=== PATIENT | female | born 1960 | race Caucasian/White ===

== ENCOUNTER → 2017-03-13 | Outpatient (CLI) | payer OTHER ==
[~2017-03-13] MED LIST: ALBU6.7H INH; ARMO1TAB PO; CALCTAB80 PO; CELE200C PO; CETI-1 PO; CLIN1PAD2 TOPICAL; CODE30TA2 PO; DICL1KIT5 TOPICAL; ESTR1TAB PO; LANS15CA PO; LYRI150C PO; MILK175C7 PO; OMEG1CAP50 PO; ONETAB22 PO; RANI1TAB5 PO; SULF500T3 PO; VARE1 PO; [UNRECOGNIZED DRUG - CODE] PO
[2017-03-13 10:14] LABS: AUTOMATED NEUTROPHIL # 3.8 TH/MM3 (1.8-7.7); BASOPHIL % 0.1 % (0.0-2.0); EOSINOPHIL # 0.1 TH/MM3 (0-0.4); EOSINOPHIL % 1.9 % (0.0-4.0); HEMATOCRIT 33.2 % (35.0-46.0); HEMOGLOBIN 11.6 GM/DL (11.6-15.3); LYMPH % 26.6 % (9.0-44.0); LYMPHOCYTE # 1.6 TH/MM3 (1.0-4.8); MEAN CELL VOLUME 98.8 FL (80.0-100.0); MEAN CORPUSCULAR HEMOGLOBIN 34.6 PG (27.0-34.0); MEAN PLATELET VOLUME 8.2 FL (7.0-11.0); MONO % 7.8 % (0.0-8.0); MONOCYTE # 0.5 TH/MM3 (0-0.9); NEUT % 63.6 % (16.0-70.0); PLATELET COUNT 175 TH/MM3 (150-450); RED BLOOD COUNT 3.36 MIL/MM3 (4.00-5.30); RED CELL DISTRIBUTION WIDTH 11.8 % (11.6-17.2)
[2017-03-13 10:19] LABS: PROTHROMBIN TIME - PATIENT 10.6 SEC (9.8-11.6)
[2017-03-13 10:23] LABS: BACTERIA, URINE RARE /hpf; BILIRUBIN, URINE NEG (NEG); BLOOD, URINE NEG (NEG); GLUCOSE,URINE NEG (NEG); KETONE, URINE NEG (NEG); MUCUS URINE FEW /lpf (OCC); NITRITE,URINE NEG (NEG); PH, URINE 6.5 (5.0-8.5); SQUAMOUS EPITHELIAL CELL URINE 15 /hpf (0-5); URINE COLOR YELLOW (YELLW/STRAW); URINE LEUKOCYTE ESTERASE NEG (NEG)
[2017-03-13 10:43] LABS: ALBUMIN 3.8 GM/DL (3.4-5.0); AST (GOT) 21 U/L (15-37); BICARBONATE 28.4 MEQ/L (21.0-32.0); BLOOD UREA NITROGEN 8 MG/DL (7-18); CALCIUM 8.6 MG/DL (8.5-10.1); CHLORIDE 98 MEQ/L (98-107); CREATININE 0.61 MG/DL (0.50-1.00); GLOMERULAR FILTRATION RATE 102 ML/MIN (>89); GLUCOSE,FASTING 70 MG/DL (74-99); SODIUM (NA) 134 MEQ/L (136-145); WESTERGREN SEDIMENTATION RATE 5 mm/hr (0-30)
[2017-03-13 10:44] LABS: ALT (GPT) 21 U/L (10-53)
[2017-03-13 10:46] LABS: ALKALINE PHOSPHATASE 61 U/L (45-117); TOTAL BILIRUBIN ADULT 0.4 MG/DL (0.2-1.0); TOTAL PROTEIN 6.5 GM/DL (6.4-8.2)
--- NOTE | 2017-03-13 11:45 | RADRPT ---
EXAM DATE/TIME: 03/13/2017 11:23 [facility] COMPARISON: No previous studies available for comparison. INDICATIONS : Evaluate for pneumonia, pneumothorax, and communicable diseases. Pre-op knee surgery MEDICAL HISTORY : None. SURGICAL HISTORY : None. ENCOUNTER: Initial ACUITY: 1 day PAIN SCORE: 0/10 LOCATION: chest FINDINGS: PA and lateral views of the chest demonstrate the lungs to be symmetrically aerated without evidence of mass, infiltrate or effusion. The cardiomediastinal contours are unremarkable. Fixation hardware partially imaged in the lower cervical spine. Degenerative changes in the upper lumbar spine. Osseous structures are otherwise intact. CONCLUSION: 1. No acute cardiopulmonary disease. Scooter Causey MD on March 13, 2017 at 11:42 Board Certified Radiologist. This report was verified electronically.
--- NOTE | 2017-03-13 14:04 | EKG ---
Date Performed: 03/13/2017 Time Performed: 09:50:40 PTAGE: 56 years EKG: Sinus bradycardia with sinus arrhythmia Lead(s) unsuitable for analysis: V1 Poor R wave pro gression - probable normal variant Low QRS voltages in limb leads Borderline ECG NO PREVIOUS TRACING DOCTOR: Gato Sterling Interpretating Date/Time 03/13/2017 14:03:26
== END ==
LOC: CPRE 08:59
PROVIDERS: ATTEND Orthopaedic Surgery Sports Medicine
DX: Z01.810 Encounter for preprocedural cardiovascular examination (principal); Z01.811 Encounter for preprocedural respiratory examination; Z01.812 Encounter for preprocedural laboratory examination; M17.11 Unilateral primary osteoarthritis, right knee; R00.1 Bradycardia, unspecified
CPT/HCPCS: 36415; 71020; 80053; 81001; 85025; 85610; 85652; 85730; 93005

== ENCOUNTER → 2017-04-28 | Outpatient (CLI) | payer OTHER ==
[~2017-04-28] MED LIST changes: +ASPI81CH6 CHEW; +CPMMACHINE; +FLUT1SPR5 EACH NARE; +HYDR-3288 PO; +LANS30CA PO; +MAPA500T13 PO; +WALKER WHEELS/F1 MIS
[2017-04-28 11:43] LABS: BASOPHIL % 0.1 % (0.0-2.0); EOSINOPHIL # 0.1 TH/MM3 (0-0.4); EOSINOPHIL % 0.7 % (0.0-4.0); HEMATOCRIT 36.6 % (35.0-46.0); HEMOGLOBIN 12.7 GM/DL (11.6-15.3); LYMPH % 24.4 % (9.0-44.0); LYMPHOCYTE # 1.8 TH/MM3 (1.0-4.8); MEAN CELL VOLUME 96.2 FL (80.0-100.0); MEAN CORPUSCULAR HEMOGLOBIN 33.5 PG (27.0-34.0); MEAN CORPUSCULAR HGB CONC 34.8 % (32.0-36.0); MEAN PLATELET VOLUME 7.6 FL (7.0-11.0); MONO % 6.3 % (0.0-8.0); MONOCYTE # 0.5 TH/MM3 (0-0.9); NEUT % 68.5 % (16.0-70.0); PLATELET COUNT 217 TH/MM3 (150-450); RED BLOOD COUNT 3.81 MIL/MM3 (4.00-5.30); RED CELL DISTRIBUTION WIDTH 11.8 % (11.6-17.2); WHITE BLOOD COUNT 7.3 TH/MM3 (4.0-11.0)
[2017-04-28 11:53] LABS: PROTHROMBIN TIME - PATIENT 10.5 SEC (9.8-11.6)
[2017-04-28 11:53] LABS: BILIRUBIN, URINE NEG (NEG); BLOOD, URINE NEG (NEG); GLUCOSE,URINE NEG (NEG); KETONE, URINE NEG (NEG); NITRITE,URINE NEG (NEG); PH, URINE 6.5 (5.0-8.5); SQUAMOUS EPITHELIAL CELL URINE 3 /hpf (0-5); URINE COLOR YELLOW (YELLW/STRAW); URINE LEUKOCYTE ESTERASE NEG (NEG)
[2017-04-28 12:26] LABS: ALBUMIN 4.2 GM/DL (3.4-5.0); AST (GOT) 17 U/L (15-37); BICARBONATE 30.4 MEQ/L (21.0-32.0); BLOOD UREA NITROGEN 11 MG/DL (7-18); CALCIUM 9.3 MG/DL (8.5-10.1); CHLORIDE 98 MEQ/L (98-107); CREATININE 0.82 MG/DL (0.50-1.00); GLOMERULAR FILTRATION RATE 72 ML/MIN (>89); GLUCOSE,FASTING 106 MG/DL (74-99); SODIUM (NA) 135 MEQ/L (136-145)
[2017-04-28 12:30] LABS: ALKALINE PHOSPHATASE 70 U/L (45-117); ALT (GPT) 36 U/L (10-53); TOTAL BILIRUBIN ADULT 0.6 MG/DL (0.2-1.0); TOTAL PROTEIN 7.2 GM/DL (6.4-8.2)
[2017-04-28 13:39] LABS: WESTERGREN SEDIMENTATION RATE 5 mm/hr (0-30)
--- NOTE | 2017-04-29 22:20 | EKG ---
Date Performed: 04/28/2017 Time Performed: 11:38:42 PTAGE: 56 years EKG: Sinus rhythm LOW QRS VOLTAGE IN EXTREMITY LEADS BORDERLINE ECG PREVIOUS TRACING : 03/13/2017 09.50 Since the prior tracing, there has been no significant swanson DOCTOR: Skinny Joyner Interpretating Date/Time 04/29/2017 22:17:25
== END ==
LOC: CPRE 11:05
PROVIDERS: ATTEND Orthopaedic Surgery Sports Medicine
DX: Z01.812 Encounter for preprocedural laboratory examination (principal); Z01.810 Encounter for preprocedural cardiovascular examination; M25.50 Pain in unspecified joint; M17.11 Unilateral primary osteoarthritis, right knee; R94.31 Abnormal electrocardiogram [ECG] [EKG]; Z96.60 Presence of unspecified orthopedic joint implant; Z01.818 Encounter for other preprocedural examination; Z79.01 Long term (current) use of anticoagulants
CPT/HCPCS: 36415; 80053; 81001; 85025; 85610; 85652; 85730; 93005

== ENCOUNTER 2017-05-15 05:16 | Inpatient (IN) | payer OTHER ==
[~2017-05-15] VITALS: Ht 165.1 cm; Wt 59.4 kg
[~2017-05-15 05:16] MED LIST changes: -ASPI81CH6 CHEW; -CPMMACHINE; -HYDR-3288 PO; -LANS15CA PO; -WALKER WHEELS/F1 MIS
[2017-05-15] MEDS ORDERED: CHLORHEXIDINE GLUCONATE 4% SOLN 120 ML BTL TOPICAL SCH (05:45)
[2017-05-15] MEDS ORDERED: DEXAMETHASONE SOD PHOS 20 MG/5 ML VIAL IV SCH (05:45)
[2017-05-15] MEDS ORDERED: VANCOMYCIN 1000 MG/NS 250 ML (for <70 kg) IV SCH ×2 (05:45)
[2017-05-15] MEDS ORDERED: POVIDONE IODINE 7.5% SCRUB 118 ML BOTTLE TOPICAL SCH (05:45)
[2017-05-15] MEDS ORDERED: CHLORHEXIDINE GLUCONATE 2 % 1 PACK (2 CLOTHS) TOPICAL PRN (06:00)
[2017-05-15] MEDS ORDERED: CLINDAMYCIN 900 MG/NS 100 ML IV SCH ×2 (06:00)
[2017-05-15] MEDS ORDERED: POVIDONE IODINE 5% (ANTISEPSIS KIT) 4 APPLICATIONS EACH NARE PRN (06:00)
[2017-05-15] MEDS ORDERED: METOPROLOL TARTRATE 25 MG TAB PO PRN (06:00)
[2017-05-15] MEDS ORDERED: SODIUM CHLORID 0.9% 500 ML IV PRN (06:00)
[2017-05-15] MEDS ORDERED: LACTATED RINGER'S 1000 ML IV PRN (06:00)
[2017-05-15] MEDS ORDERED: SODIUM CHLOR 0.9% 250 ML INJ 250 ML ONE (06:49)
[2017-05-15 07:05] VITALS: PULSE 58
[2017-05-15] MEDS ORDERED: SODIUM CHLORIDE 0.9% 20 ML VIAL ONE (07:09)
[2017-05-15] MEDS ORDERED: BUPIVACAINE LIPOSOME PF 1.3% 20 ML VIAL ONE (07:09)
[2017-05-15] MEDS ORDERED: MIDAZOLAM HCL 5 MG/5 ML VIAL ONE (07:09)
[2017-05-15] MEDS ORDERED: HYDR-3288 PO (07:12)
[2017-05-15] MEDS ORDERED: ASPI81CH6 CHEW (07:13)
[2017-05-15] MEDS ORDERED: ONDANSETRON HCL 4 MG/2 ML VIAL IVP PRN (07:15)
[2017-05-15] MEDS ORDERED: ZOLPIDEM TARTRATE 5 MG TAB PO PRN (07:15)
[2017-05-15] MEDS ORDERED: diphenhydrAMINE HCL 50 MG/ML VIAL IV PUSH PRN (07:15)
[2017-05-15] MEDS ORDERED: Post-op Orders (for Pharmacy) XX ONE (07:15)
[2017-05-15] MEDS ORDERED: BISACODYL 10 MG SUPP RECTAL PRN (07:15)
[2017-05-15] MEDS ORDERED: MORPHINE SULFATE 4 MG/ML INJ IV PUSH PRN (07:15)
[2017-05-15] MEDS ORDERED: GENTAMICIN SULFATE 80 MG/2 ML VIAL ONE (07:21)
[2017-05-15] MEDS ORDERED: TRANEXAMIC PERI-ARTICULAR 3,000 MG/NS 100 ML P-ARTICULR SCH ×2 (08:30)
[2017-05-15] MEDS ORDERED: TRANEXAMIC ACID IV SCH (08:30)
[2017-05-15] MEDS ORDERED: ROPIVACAINE PERI-ARTICULAR INJECTION. P-ARTICULR SCH ×5 (08:30)
[2017-05-15] MEDS ORDERED: SODIUM CHLORIDE 0.9% IV SCH (08:30)
[2017-05-15] MEDS ORDERED: ACETAMINOPHEN 1000 MG/100 ML 100 ML IV ONE (08:39)
[2017-05-15] MEDS: VARENICLINE 1 MG TAB PO SCH ×2 (09:00→17:25)
[2017-05-15] MEDS: PREGABALIN 75 MG CAP PO SCH ×2 (09:00→21:00)
[2017-05-15] MEDS: PANTOPRAZOLE SOD 40 MG DELAYED RELEASE TAB PO SCH (09:00)
[2017-05-15] MEDS: FAMOTIDINE 20 MG TAB PO SCH ×2 (09:00→20:14)
[2017-05-15] MEDS: sulfaSALAzine 500 MG TAB PO SCH ×3 (09:00→21:00)
[2017-05-15] MEDS: CETIRIZINE HCL 10 MG TAB PO SCH (09:00)
[2017-05-15] MEDS: ESTRADIOL 1 MG TAB PO SCH (09:00)
[2017-05-15] MEDS: CALCIUM/VITAMIN D 250 MG/125 U TAB PO SCH (10:00)
[2017-05-15] MEDS ORDERED: DO NOT ADM ANY ANTICOAGULANT DRUGS PRN (10:21)
[2017-05-15] MEDS ORDERED: *morphine SULFATE 10 MG/ML PERIprocedure ONLY ONE (10:38)
[2017-05-15] MEDS ORDERED: MORPHINE SULFATE 4 MG/ML INJ ONE (10:43)
[2017-05-15] MEDS: SODIUM CHLOR 0.9% 1000 ML INJ 1,000 ML IV SCH ×2 (10:45→17:26)
[2017-05-15] MEDS ORDERED: HYDROmorphone HCL PF 2 MG/ML VIAL ONE (11:01)
--- NOTE | 2017-05-15 11:30 | RADRPT ---
EXAM DATE/TIME: 05/15/2017 10:34 [facility] COMPARISON: No previous studies available for comparison. INDICATIONS : Post-op total right knee arthroplasty. MEDICAL HISTORY : Chronic obstructive pulmonary disease. Osteoarthritis. Fibromyalgia. Asthma. SURGICAL HISTORY : Hysterectomy. Fusion, cervical. Bilateral rotator cuff surgery. ENCOUNTER: Initial ACUITY: 1 day PAIN SCORE: 10/10 LOCATION: Right knee. FINDINGS: The patient is status post right total knee arthroplasty. The tibial and femoral components appear we ll seated. Subcutaneous emphysema is identified within the soft tissues of the level of the knee. CONCLUSION: Status post right total knee arthroplasty. Brian Borges MD on May 15, 2017 at 11:28 Board Certified Radiologist. This report was verified electronically.
[2017-05-15] MEDS ORDERED: ONDANSETRON HCL 4 MG/2 ML VIAL IV PUSH ONE (12:00)
[2017-05-15] MEDS ORDERED: GLYCOPYRROLATE 1 MG/5 ML SYRINGE IV PUSH ONE (12:00)
[2017-05-15] MEDS ORDERED: ROCURONIUM INJ 50 MG/5 ML SYRINGE IV PUSH ONE (12:00)
[2017-05-15] MEDS ORDERED: NEOSTIGMINE 5 MG/5 ML SYRINGE IV PUSH ONE (12:00)
[2017-05-15] MEDS ORDERED: LIDOCAINE HCL 1% PF 5 ML SYRINGE OTHER ONE (12:00)
[2017-05-15] MEDS ORDERED: ePHEDrine/NS 25 MG/5 ML SYRINGE IV ONE (12:00)
[2017-05-15] MEDS ORDERED: PROPOFOL 200 MG/20 ML AMP IV ONE (12:00)
[2017-05-15] MEDS ORDERED: *ONDANSETRON 4 MG VIAL PERIprocedural Use ONLY ONE (13:31)
--- NOTE | 2017-05-15 13:39 | MP ---
cc: Bill Giraldo MD DATE OF OPERATION: PREOPERATIVE DIAGNOSIS: Right knee osteoarthrosis. POSTOPERATIVE DIAGNOSIS: Right knee osteoarthrosis. PROCEDURE: Right total knee arthroplasty. SURGEON: Bill Giraldo MD PROJECTION TECHNICIAN: JOSE Looney ANESTHESIA: General with a femoral nerve adductor canal block. ESTIMATED BLOOD LOSS: 200 mL. TOURNIQUET TIME: 26 minutes at 250 mmHg. COMPLICATIONS: None. IMPLANTS USED: DePuy Attune size 5 posterior stabilized femoral component, size 5 rotating platform tibia baseplate, size 6 mm polyethylene tibial insert, size 35 patella. JUSTIFICATION: This patient is a 56-year-old female with history of severe end-stage osteoarthrosis involving the right knee. She has severe disabling pain with standing, walking, ambulation, weightbearing activities and severe pain at rest. She has failed greater than 3 months of nonoperative conservative treatment to include medication therapy, injections, ambulatory assistance aids, home exercise program, activity modification. Patient is not overweight. X-rays of the right knee reveal severe degenerative osteoarthritis with joint space narrowing, subchondral sclerosis, subchondral cyst, osteophyte formation and associated subluxation with deformity. The patient was counseled on risks, benefits, alternatives to a total knee arthroplasty. The risks were discussed, which include but not limited to anesthesia, bleeding, infection, damage to nerves, blood loss, pain, stiffness, failure of components, blood clots, pulmonary embolism and even . Patient's pain is severe. She favors the benefits versus the risks and she does wish to proceed with surgery. PROCEDURE IN DETAIL: Written consent was obtained. Patient was identified by name, taken by operating room, placed supine on the table. General anesthesia was administered, as well as 1 g of IV vancomycin and 600 mg of IV clindamycin. A well-padded tourniquet was placed on the right thigh. The right lower extremity prepped and draped using Hibiclens solution and ChloraPrep solution. After a timeout was performed, an Esmarch bandage was used to exsanguinate the right lower extremity. Tourniquet inflated to 250 mmHg. A longitudinal incision was made over the anterior aspect of the right knee. A medial parapatellar arthrotomy was performed. The patella was everted, and patellar resection guide was used to resect 7 mm of patella. The size 35 mm guide was placed. Three drill holes were placed and the 35 mm trial fit well. Attention was turned to the femur where an intramedullary guidewire was placed, and the distal femoral guide was set to remove 11 mm of distal femur, 5 degrees off the anatomic valgus axis alignment. An oscillating saw was used to perform the distal femoral cut. Attention was turned to the tibia where an extramedullary tibial guide was set to remove 5 mm off the lowest portion of the medial tibial plateau. The tibial guide was pinned in placed, and tibia cut was performed. A 5 mm spacer block showed full extension. Attention was turned back to the femur, where the AP sizing block measured size 5. The anterior reference 3-degree external rotation guide was used to pin a size [address] The anterior, posterior and chamfer cuts were performed. A size 5 PCL box guide was pinned in place and the PCL was box cut with an oscillating saw. The medial and lateral meniscus remnants were removed, as well as bone and soft tissue debris from the posterior portion of the knee. A size 5 tibia base plate was pinned in place, and tibia was drilled and punched. Trial components were evaluated and final components cemented into place. With the current components, the leg could achieve full extension to zero degrees and flexion to 140. No evidence of tibial lift off. Varus-valgus balance appeared appropriate and symmetric, and the patella was noted to track centrally. With the tourniquet deflated, Bovie cautery was used for hemostasis. Surgical wound was thoroughly irrigated with sterile saline solution. The arthrotomy incision was closed with #1 Vicryl suture, subcutaneous layer with 2-0 Vicryl suture, and skin was closed with Dermabond. Sterile dressing was applied. Patient tolerated procedure well. No intraoperative complications note. Gulshan Oneal, physician captain assistant certified, was present during entire procedure to include patient positioning and the procedure itself. The medical necessity of a physician captain assistant was indicated in this case due to the complexity of the procedure. He assisted with appropriate manipulation of the leg and also retraction of muscles, tendon, bone and neurovascular structures. He assisted with preparation of bone and also implantation of the prosthetic replacement. MD EJ Dan/ASAEL , 10:04 AM , 01:37 PM
[2017-05-15 14:30] VITALS: BP 96/52; PULSE 56; RESP 17; TEMP 96.1; O2SAT 96
--- NOTE | 2017-05-15 14:34 | HHI.DCPOC ---
Discharge Care Plan Diagnosis: (1) Primary localized osteoarthrosis, lower leg Your Health Problems Are: Difficulty with ADL Goals to Promote Your Health * To prevent worsening of your condition and complications * To maintain your health at the optimal level Directions to Meet Your Goals Take your medications as prescribed Follow your dietary instruction Follow activity as directed Keep your appointments as scheduled Take your immunizations and boosters as scheduled If your symptoms worsen call your PCP, if no PCP go to Urgent Care Center or Emergency Room Smoking is Dangerous to Your Health. Avoid second hand smoke Call the 24-hour hour crisis hotline for domestic abuse at Bill Oneal May 15, 2017 14:34
--- NOTE | 2017-05-15 14:34 | HHI.FF ---
Face to Face Verification Diagnosis: (1) Primary localized osteoarthrosis, lower leg Physical Therapy Gait training, Safety evaluation, Transfer training, bed to chair Knee: Total knee, Protocol: Right, Full weight bearing Right LE Weight Bearing: WB as tolerated Nursing RN: 3 days/week x 2 weeks Nursing: Dressing changes Dressing Changes: Daily dressing change I have seen patient Gracia Cantu on 05/15/17. My clinical findings support the need for the requested home health care services because: Limited ability to care for self High risk of falls I certify that my clinical findings support that this patient is homebound because: Post-op weakness Unsteady gait/balance Bill Oneal May 15, 2017 14:34
--- NOTE | 2017-05-15 14:36 | PD.ORT.PN ---
Subjective Post Op Day #: 0 Objective Vitals Vital Signs Date Time Temp Pulse Resp B/P (MAP) Pulse Ox O2 Delivery O2 Flow Rate FiO2 05/15/17 13:30 65 20 92/56 (68) 100 Nasal Cannula 3 05/15/17 13:00 53 12 99/56 (70) 100 Nasal Cannula 3 05/15/17 12:30 97.2 50 12 93/55 (68) 100 Nasal Cannula 3 05/15/17 12:00 49 12 90/53 (65) 100 Nasal Cannula 3 05/15/17 11:30 51 12 97/52 (67) 98 Nasal Cannula 3 05/15/17 11:15 55 12 97/56 (70) 99 Nasal Cannula 3 05/15/17 11:00 61 18 94/63 (73) 100 Nasal Cannula 3 05/15/17 10:45 59 20 109/62 (78) 100 Nasal Cannula 3 05/15/17 10:24 98.2 67 18 119/66 (83) 100 Nasal Cannula 3 05/15/17 08:02 56 20 106/60 (75) 99 05/15/17 07:05 100 Nasal Cannula 05/15/17 07:05 58 05/15/17 06:50 97.6 57 16 117/69 (85) 95 I/O 05/14/17 05/14/17 05/14/17 05/15/17 05/15/17 05/15/17 07:00 15:00 23:00 07:00 15:00 23:00 Intake Total 1500 ml Output Total 1250 ml Balance 250 ml Other 1500 ml Output Urine Total 1050 ml Estimated Blood Loss 200 ml Imaging Last 24 hours Impressions Knee X-Ray 05/15/17 0710 Signed Impressions: Service Date/Time: Monday, May 15, 2017 10:34 - CONCLUSION: Status post right total knee arthroplasty. Brian Borges MD Assessment & Plan Ortho Post Op Day #: 0 Problem List: Assessment and Plan s/p R TKA POD#0 wbat ok to maintain dressing unless saturated lovenox, d/c on asa81 d/c planning home vs snf rx in chart f/up dr. beckett 2 weeks Bill Oneal May 15, 2017 14:36
[2017-05-15] MEDS ORDERED: WALKER WHEELS/F1 MIS (14:38)
[2017-05-15] MEDS ORDERED: CPMMACHINE (14:38)
[2017-05-15] MEDS: ACETAMINOPHEN/HYDROcodone 325 MG/7.5 MG TAB PO PRN ×2 (15:17→21:36)
[2017-05-15] MEDS ORDERED: ALBUTEROL SULFATE 90 MCG/ACT HFA 8 GM INHALER INH PRN (16:00)
--- NOTE | 2017-05-15 16:07 | PD.CONS ---
HPI Service [facility] Consult Requested By Reason for Consult Medical management Primary Care Physician Nata Arias D.O. Diagnoses: History of Present Illness 56-year-old female who underwent a right total knee arthroplasty today. She tolerated the procedure well and is currently still sleepy due to sedation. She is holding a nausea bag and complains of some recurrent nausea following her last Zofran dose 4 hours ago. Her pain is adequately controlled. Review of Systems Constitutional: DENIES: Fatigue, Fever, Weight gain, Weight loss, Chills Eyes: DENIES: Blurred vision, Eye pain, Vision loss, Photosensitivity Respiratory: DENIES: Cough, Wheezing, Hemoptysis, Sputum production Gastrointestinal: COMPLAINS OF: Nausea, DENIES: Black stools, Bloody stools, Constipation, Diarrhea, Vomiting Genitourinary: DENIES: Abnormal vaginal bleeding, Dysmenorrhea Musculoskeletal: COMPLAINS OF: Joint pain, Stiffness, Joint Swelling, DENIES: Muscle aches, Back pain, Neck pain Integumentary: DENIES: Abnormal pigmentation, Pruritus, Rash Neurologic: DENIES: Abnormal gait, Headache, Localized weakness, Paresthesias, Seizures, Speech Problems, Tremor Psychiatric: DENIES: Anxiety, Confusion, Mood changes, Depression Past Family Social History Allergies: Coded Allergies: Penicillins (Verified Allergy, Severe, CRAWFORD OF BLOOD RUNNING DOWN THE BACK OF MY THROAT, 03/13/17) bupropion (Verified Allergy, Unknown, PANIC ATTACKS, 03/13/17) Past Medical History Patient denies any major medical issues Though her medication list seems to point to GI issues Past Surgical History Hysterectomy, C5, C6, C7 fusion, bilateral rotator cuff surgery Family History Hypertension, type 1 diabetes Social History Prior smoker, occasional alcohol use (social) Physical Exam Vital Signs Vital Signs Date Time Temp Pulse Resp B/P (MAP) Pulse Ox O2 Delivery O2 Flow Rate FiO2 05/15/17 14:30 96.1 56 17 96/52 (67) 96 05/15/17 13:30 65 20 92/56 (68) 100 Nasal Cannula 3 05/15/17 13:00 53 12 99/56 (70) 100 Nasal Cannula 3 05/15/17 12:30 97.2 50 12 93/55 (68) 100 Nasal Cannula 3 05/15/17 12:00 49 12 90/53 (65) 100 Nasal Cannula 3 05/15/17 11:30 51 12 97/52 (67) 98 Nasal Cannula 3 05/15/17 11:15 55 12 97/56 (70) 99 Nasal Cannula 3 05/15/17 11:00 61 18 94/63 (73) 100 Nasal Cannula 3 05/15/17 10:45 59 20 109/62 (78) 100 Nasal Cannula 3 05/15/17 10:24 98.2 67 18 119/66 (83) 100 Nasal Cannula 3 05/15/17 08:02 56 20 106/60 (75) 99 05/15/17 07:05 100 Nasal Cannula 05/15/17 07:05 58 05/15/17 06:50 97.6 57 16 117/69 (85) 95 Physical Exam GENERAL: This is a well-nourished, well-developed patient, in no apparent distress, still slightly sedated from anesthesia SKIN: No rashes, ecchymoses or lesions. Cool and dry. HEAD: Atraumatic. Normocephalic. No temporal or scalp tenderness. EYES: Pupils equal round and reactive. Extraocular motions intact. No scleral icterus. No injection or drainage. ENT: Nose without bleeding, purulent drainage or septal hematoma. Throat without erythema, tonsillar hypertrophy or exudate. Uvula midline. Airway patent. NECK: Trachea midline. No JVD or lymphadenopathy. Supple, nontender, no meningeal signs. CARDIOVASCULAR: Regular rate and rhythm without murmurs, gallops, or rubs. RESPIRATORY: Clear to auscultation. Breath sounds equal bilaterally. No wheezes , rales, or rhonchi. GASTROINTESTINAL: Abdomen soft, non-tender, nondistended. No palpable masses, no guarding, hypoactive bowel sounds MUSCULOSKELETAL: Extremities without clubbing, cyanosis, or edema. Right knee under surgical wrap with Alberto bandage in place. Sensation and circulation in her right foot intact. NEUROLOGICAL: Awake and alert. Cranial nerves II through XII intact. Motor and sensory grossly within normal limits. Five out of 5 muscle strength in all muscle groups. Normal speech. Assessment and Plan Problem List: (1) Primary localized osteoarthrosis, lower leg ICD Code: M17.10 - Unilateral primary osteoarthritis, unspecified knee Assessment and Plan Total arthroplasty right knee Tolerated procedure well, slight nausea PT planned for tomorrow Orthopedics following Nausea Zofran every 4 hours as needed Patient states she tolerates hydrocodone better than morphine Bowel sounds hypoactive, still awakening following surgery Clear liquids for now History of cervical fusion No complaints of pain in this region at this time History of hysterectomy Patient takes 1 mg of estradiol Resume when ambulatory DVT prophylaxis Lovenox while inpatient, aspirin upon discharge (or the recommendations) Discharge planning Patient states she walked from her stretcher into the bed, POD #0, expect timely discharge. Problem Qualifiers (1) Primary localized osteoarthrosis, lower leg: Qualified Codes: M17.11 - Unilateral primary osteoarthritis, right knee Dillon Fatima MD May 15, 2017 16:06
[2017-05-15] MEDS ORDERED: ONDANSETRON HCL 4 MG/2 ML VIAL IV PUSH PRN (16:15)
[2017-05-15] MEDS: VANCOMYCIN INJ 1,000 MG in SODIUM CHLOR 0.9% 250 ML INJ 250 ML IV SCH (20:14)
[2017-05-15 20:30] VITALS: BP 90/54; PULSE 56; RESP 17; TEMP 97; O2SAT 99
[2017-05-15] MEDS ORDERED: SODIUM CHLORID 0.9% 500 ML INJ 500 ML IV ONE (23:45)
[2017-05-16] VITALS: BP 94/49; PULSE 59; RESP 17; TEMP 97.4; O2SAT 97
[2017-05-16 00:10] LABS: HEMATOCRIT 28.3 % (35.0-46.0); HEMOGLOBIN 9.9 GM/DL (11.6-15.3)
[2017-05-16] MEDS: sulfaSALAzine 500 MG TAB PO SCH ×4 (03:00→20:57)
[2017-05-16] MEDS: SODIUM CHLOR 0.9% 1000 ML INJ 1,000 ML IV SCH ×2 (04:00→14:00)
[2017-05-16 04:25] VITALS: BP 87/41; PULSE 65; RESP 17; TEMP 97.8; O2SAT 96
[2017-05-16 04:43] LABS: HEMATOCRIT 26.2 % (35.0-46.0); HEMOGLOBIN 9.2 GM/DL (11.6-15.3); MEAN CELL VOLUME 96.3 FL (80.0-100.0); MEAN CORPUSCULAR HEMOGLOBIN 33.9 PG (27.0-34.0); MEAN CORPUSCULAR HGB CONC 35.2 % (32.0-36.0); MEAN PLATELET VOLUME 7.5 FL (7.0-11.0); PLATELET COUNT 145 TH/MM3 (150-450); RED BLOOD COUNT 2.73 MIL/MM3 (4.00-5.30); RED CELL DISTRIBUTION WIDTH 11.6 % (11.6-17.2); WHITE BLOOD COUNT 7.5 TH/MM3 (4.0-11.0)
[2017-05-16 05:11] LABS: BICARBONATE 27.8 MEQ/L (21.0-32.0); CALCIUM 8.4 MG/DL (8.5-10.1); CREATININE 0.63 MG/DL (0.50-1.00)
[2017-05-16] MEDS: VANCOMYCIN INJ 1,000 MG in SODIUM CHLOR 0.9% 250 ML INJ 250 ML IV SCH (07:59)
[2017-05-16] MEDS: CALCIUM/VITAMIN D 250 MG/125 U TAB PO SCH (07:59)
[2017-05-16] MEDS: PREGABALIN 75 MG CAP PO SCH ×2 (07:59→20:57)
[2017-05-16 08:00] VITALS: BP 101/51; PULSE 64; RESP 18; TEMP 97.6; O2SAT 97
[2017-05-16] MEDS: VARENICLINE 1 MG TAB PO SCH ×2 (08:00→18:00)
[2017-05-16] MEDS: ACETAMINOPHEN/HYDROcodone 325 MG/7.5 MG TAB PO PRN ×4 (08:00→20:57)
[2017-05-16] MEDS: ESTRADIOL 1 MG TAB PO SCH (08:01)
[2017-05-16] MEDS: CETIRIZINE HCL 10 MG TAB PO SCH (08:03)
[2017-05-16] MEDS: PANTOPRAZOLE SOD 40 MG DELAYED RELEASE TAB PO SCH (08:03)
[2017-05-16] MEDS: FAMOTIDINE 20 MG TAB PO SCH ×2 (08:03→20:57)
--- NOTE | 2017-05-16 08:26 | HHI.PR ---
Subjective Remarks Pt seen and examined this morning. Overnight patient was hypotensive with documented BP as low as 87/41 requiring a fluid bolus. Patient reports she never felt symptomatic; denies dizziness, lightheadedness, or weakness. Has been sitting up in bed and getting up to use the restroom with no issues or feeling lightheaded. States her BP typically runs on the lower end and systolic has been in the 90s as an outpatient. She also notes being anemic since she was a teenager. Denies any active bleeding. Colonoscopy done within the year. Has a PCP who follows her CBC. She is tolerating PO without nausea or vomiting. Passing flatus, no BM yet. Denies CP, SOB, or abdominal pain. Objective Vital Signs Date Time Temp Pulse Resp B/P (MAP) Pulse Ox O2 Delivery O2 Flow Rate FiO2 05/16/17 04:25 97.8 65 17 87/41 (56) 96 05/16/17 00:00 97.4 59 17 94/49 (64) 97 05/15/17 20:30 97.0 56 17 90/54 (66) 99 05/15/17 14:30 96.1 56 17 96/52 (67) 96 05/15/17 13:30 65 20 92/56 (68) 100 Nasal Cannula 3 05/15/17 13:00 53 12 99/56 (70) 100 Nasal Cannula 3 05/15/17 12:30 97.2 50 12 93/55 (68) 100 Nasal Cannula 3 05/15/17 12:00 49 12 90/53 (65) 100 Nasal Cannula 3 05/15/17 11:30 51 12 97/52 (67) 98 Nasal Cannula 3 05/15/17 11:15 55 12 97/56 (70) 99 Nasal Cannula 3 05/15/17 11:00 61 18 94/63 (73) 100 Nasal Cannula 3 05/15/17 10:45 59 20 109/62 (78) 100 Nasal Cannula 3 05/15/17 10:24 98.2 67 18 119/66 (83) 100 Nasal Cannula 3 I/O 05/15/17 05/15/17 05/15/17 05/16/17 05/16/17 05/16/17 07:00 15:00 23:00 07:00 15:00 23:00 Intake Total 1500 ml 960 ml Output Total 1250 ml 750 ml Balance 250 ml 210 ml Intake Oral 960 ml Other 1500 ml Output Urine Total 1050 ml 750 ml Estimated Blood Loss 200 ml # Bowel Movements 0 Result Diagram: 05/16/17 0430 05/16/17 0430 Procedures 05/15/17: Right total knee arthroplasty Objective Remarks GENERAL: WN, WD female laying comfortably in bed in NAD. SKIN: Warm and dry. HEENT: Pupils equal and round. MMM. NECK: Supple no tender LAD or JVD. HEART: RRR no m/r/g. LUNGS: CTAB without wheezes or crackles. ABDOMEN: Soft, NT, ND. EXTREMITIES: RLE in GENEVA wrap. NEURO: Awake and alert. PSYCH: Appropriate mood and affect. A/P Assessment and Plan 56 YOWF admitted for R TKR done by ortho. Hospitalist consulted for medical management. Total arthroplasty right knee POD1 H&H stable, anemia at baseline and followed as an outpatient PT Ortho managing; medically clear for D/C when ortho deems appropriate Hypotension Received 1L fluid bolus overnight BPs remain low but HR WNL and patient asymptomatic Patient with low BP at baseline History of hysterectomy Patient takes 1 mg of estradiol Resume when ambulatory GERD Continue home PPI Seasonal allergies Continue home Zyrtec DVT prophylaxis Lovenox Discharge Planning D/C tomorrow per ortho Case management for [facility] Belinda Alicea MD May 16, 2017 08:26
[2017-05-16] MEDS ORDERED: ARMODAFINIL PO SCH (09:00)
[2017-05-16] MEDS ORDERED: ARMODAFINIL 150 MG PO SCH (09:00)
[2017-05-16] MEDS: ENOXAPARIN SODIUM 40 MG/0.4 ML SYRINGE SQ SCH (10:00)
[2017-05-16 12:00] VITALS: BP 99/52; PULSE 68; RESP 18; TEMP 97.1; O2SAT 100
[2017-05-16 16:00] VITALS: BP 107/54; PULSE 72; RESP 18; TEMP 98.7; O2SAT 96
--- NOTE | 2017-05-16 18:12 | PD.ORT.PN ---
Subjective Subjective Remarks no CP/SOB, no dizziness. walking a lot Objective Vitals Vital Signs Date Time Temp Pulse Resp B/P (MAP) Pulse Ox O2 Delivery O2 Flow Rate FiO2 05/16/17 16:00 98.7 72 18 107/54 (71) 96 05/16/17 12:00 97.1 68 18 99/52 (68) 100 05/16/17 08:00 97.6 64 18 101/51 (68) 97 05/16/17 04:25 97.8 65 17 87/41 (56) 96 05/16/17 00:00 97.4 59 17 94/49 (64) 97 05/15/17 20:30 97.0 56 17 90/54 (66) 99 I/O 05/15/17 05/15/17 05/15/17 05/16/17 05/16/17 05/16/17 07:00 15:00 23:00 07:00 15:00 23:00 Intake Total 1500 ml 960 ml 720 ml Output Total 1250 ml 750 ml Balance 250 ml 210 ml 720 ml Intake Oral 960 ml 720 ml Other 1500 ml Output Urine Total 1050 ml 750 ml Estimated Blood Loss 200 ml # Voids 4 # Bowel Movements 0 0 Result Diagram: 05/16/17 0430 05/16/17 0430 Imaging Last 24 hours Impressions Knee X-Ray 05/15/17 0710 Signed Impressions: Service Date/Time: Monday, May 15, 2017 10:34 - CONCLUSION: Status post right total knee arthroplasty. Brian Borges MD Objective Remarks aaox3. NAD RLE: neg homans, dressign CDI, grossly nvi. Assessment & Plan Assessment and Plan s/p R TKA POD#1 no issues as far as knee. wbat ok to maintain dressing unless saturated lovenox, d/c on asa81 d/c planning home HHC tomorrow rx in chart f/up dr. beckett 2 weeks Rios Mcfadden Jr., MD May 16, 2017 18:12
[2017-05-16 20:00] VITALS: BP 112/65; PULSE 72; RESP 15; TEMP 98.5; O2SAT 95
[2017-05-16] MEDS: MULTIVITAMINS/MINERALS THERAPEUTIC TAB PO SCH (20:57)
[2017-05-16] MEDS: DOCUSATE SODIUM 100 MG CAP PO SCH (20:57)
[2017-05-17] VITALS: BP 127/62; PULSE 75; RESP 15; TEMP 98.2; O2SAT 95
[2017-05-17] MEDS: ACETAMINOPHEN/HYDROcodone 325 MG/7.5 MG TAB PO PRN ×3 (01:08→09:30)
[2017-05-17] MEDS: sulfaSALAzine 500 MG TAB PO SCH ×2 (01:09→08:09)
--- NOTE | 2017-05-17 07:44 | HHI.PR ---
Subjective Remarks Pt seen and examined. VS reviewed, BPs improved with less hypotension. Pt feels well and is ready to go home. Pain controlled with analgesics. Tolerating PO without nausea or vomiting. +flatus. No BM yet but feels like she is going to have on this morning. Denies CP, SOB, dizziness. Objective Vitals Vital Signs Date Time Temp Pulse Resp B/P (MAP) Pulse Ox O2 Delivery O2 Flow Rate FiO2 05/17/17 00:00 98.2 75 15 127/62 (83) 95 05/16/17 20:00 98.5 72 15 112/65 (81) 95 05/16/17 16:00 98.7 72 18 107/54 (71) 96 05/16/17 12:00 97.1 68 18 99/52 (68) 100 05/16/17 08:00 97.6 64 18 101/51 (68) 97 I/O 05/16/17 05/16/17 05/16/17 05/17/17 05/17/17 05/17/17 07:00 15:00 23:00 07:00 15:00 23:00 Intake Total 960 ml 720 ml 500 ml 200 ml Output Total 750 ml Balance 210 ml 720 ml 500 ml 200 ml Intake Oral 960 ml 720 ml 500 ml 200 ml Output Urine Total 750 ml # Voids 4 2 1 # Bowel Movements 0 0 Result Diagram: 05/16/17 0430 05/16/17 0430 Imaging 05/15/17: Right total knee arthroplasty Objective Remarks GENERAL: WN, WD female sitting in chair eating breakfast. SKIN: Warm and dry. HEENT: Pupils equal and round. MMM. NECK: Supple no tender LAD or JVD. HEART: RRR no m/r/g. LUNGS: CTAB without wheezes or crackles. ABDOMEN: Soft, NT, ND. EXTREMITIES: R knee dressing C/D/I. No LE edema. NEURO: Awake and alert. PSYCH: Appropriate mood and affect. A/P Problem List: (1) Primary localized osteoarthrosis, lower leg ICD Code: M17.10 - Unilateral primary osteoarthritis, unspecified knee Assessment and Plan 56 YOWF admitted for R TKR done by ortho. Hospitalist consulted for medical management. Total arthroplasty right knee POD2 H&H stable, anemia at baseline and followed as an outpatient PT Ortho managing; medically clear for D/C when ortho deems appropriate Hypotension Improved Patient's BP lower at baseline HR normal, not tachycardic History of hysterectomy Resume estradiol GERD Continue home PPI Seasonal allergies Continue home Zyrtec DVT prophylaxis Lovenox while inpatient, ASA on d/c Discharge Planning D/C plans per ortho, anticipate today Problem Qualifiers (1) Primary localized osteoarthrosis, lower leg: Qualified Codes: M17.11 - Unilateral primary osteoarthritis, right knee Belinda Alicea MD May 17, 2017 07:44
[2017-05-17 08:00] VITALS: BP 123/69; PULSE 66; RESP 18; TEMP 98.4; O2SAT 96
[2017-05-17] MEDS: DOCUSATE SODIUM 100 MG CAP PO SCH (08:06)
[2017-05-17] MEDS: PANTOPRAZOLE SOD 40 MG DELAYED RELEASE TAB PO SCH (08:06)
[2017-05-17] MEDS: MULTIVITAMINS/MINERALS THERAPEUTIC TAB PO SCH (08:06)
[2017-05-17] MEDS: CALCIUM/VITAMIN D 250 MG/125 U TAB PO SCH (08:06)
[2017-05-17] MEDS: PREGABALIN 75 MG CAP PO SCH (08:07)
[2017-05-17] MEDS: FAMOTIDINE 20 MG TAB PO SCH (08:07)
[2017-05-17] MEDS: ESTRADIOL 1 MG TAB PO SCH (08:07)
[2017-05-17] MEDS: CETIRIZINE HCL 10 MG TAB PO SCH (08:07)
[2017-05-17] MEDS: VARENICLINE 1 MG TAB PO SCH (08:08)
[2017-05-17 08:16] LABS: HEMATOCRIT 27.2 % (35.0-46.0); HEMOGLOBIN 9.3 GM/DL (11.6-15.3); MEAN CELL VOLUME 96.7 FL (80.0-100.0); MEAN CORPUSCULAR HEMOGLOBIN 33.2 PG (27.0-34.0); MEAN CORPUSCULAR HGB CONC 34.3 % (32.0-36.0); MEAN PLATELET VOLUME 7.8 FL (7.0-11.0); PLATELET COUNT 153 TH/MM3 (150-450); RED BLOOD COUNT 2.82 MIL/MM3 (4.00-5.30); RED CELL DISTRIBUTION WIDTH 11.7 % (11.6-17.2); WHITE BLOOD COUNT 6.7 TH/MM3 (4.0-11.0)
[2017-05-17 08:44] LABS: BICARBONATE 31.5 MEQ/L (21.0-32.0); CALCIUM 8.5 MG/DL (8.5-10.1); CREATININE 0.72 MG/DL (0.50-1.00)
[2017-05-17] MEDS: SODIUM CHLOR 0.9% 1000 ML INJ 1,000 ML IV SCH ×2 (09:31)
[2017-05-17] MEDS: ENOXAPARIN SODIUM 40 MG/0.4 ML SYRINGE SQ SCH (09:31)
--- NOTE | 2017-05-20 08:01 | MD ---
cc: Bill Giraldo MD DATE OF DISCHARGE: 05/17/2017 ADMITTING DIAGNOSIS: Severe degenerative osteoarthritis right knee. DISCHARGE DIAGNOSIS: Severe degenerative osteoarthritis right knee. HISTORY OF PRESENT ILLNESS: Ms. Cantu is a longstanding patient of Dr. Bill Giraldo at the [facility]. Currently she has been receiving treatment for progressive bilateral knee pain, right greater than left. She has also had previous treatment at the [facility] regarding her knees. Currently she states her right knee pain is inhibiting her activities of daily living. She has a severe aching sensation with weightbearing activities. She has no alleviating factors although in the past she has tried medications, bracing, physical therapy, home exercises and multiple injections without relief of symptoms. She does have x-ray evidence of severe degenerative osteoarthritis of the right knee. While in the office the patient was counseled on her diagnosis and treatment options, risks, benefits, indications are discussed. Patient elected to proceed with surgery ____ right total knee arthroplasty. DATE OF SURGERY: 05/15/2017, right total knee arthroplasty. POSTOPERATIVE: After surgery, patient admitted to [facility] where she received appropriate medical management, pain control, DVT prophylaxis as well as physical therapy. DISCHARGE: Once being discharged from the hospital, the patient has been cleared to go home where she will receive home health care and hope physical therapy. She is in stable condition. She may weight bear as tolerated. She has been instructed on wound care management. She has also been provided prescriptions for pain control as well as DVT prophylaxis medication. The patient has also been provided a followup appointment approximately 2 weeks from date of surgery. The patient asked appropriate questions which have been answered. The patient has been discharged. Dictated by JOSE Dennis Bill Giraldo MD JWM/rt , 08:41 AM , 08:53 PM
== END 2017-05-17 11:05 | disposition home health service (06) | DRG 470 ==
LOC: HSDC 05:16 → HSDI 07:11 → EDSTATUS 08:30 → N06A 13:58
PROVIDERS: ADMIT Orthopaedic Surgery Sports Medicine; ATTEND Orthopaedic Surgery Sports Medicine
PROC: 3E0T3BZ Introduction of Anesthetic Agent into Peripheral Nerves and Plexi, Percutaneous Approach (ICD-10-PCS; 2017-05-15)
PROC: 0SRC0J9 Replacement of Right Knee Joint with Synthetic Substitute, Cemented, Open Approach (ICD-10-PCS; principal; 2017-05-15 08:25)
DX: M17.0 Bilateral primary osteoarthritis of knee (principal); I10 Essential (primary) hypertension; R11.0 Nausea; M79.7 Fibromyalgia; K21.9 Gastro-esophageal reflux disease without esophagitis; J45.909 Unspecified asthma, uncomplicated; Z87.891 Personal history of nicotine dependence; Z88.0 Allergy status to penicillin; Z98.1 Arthrodesis status
CPT/HCPCS: 73560; 80048; 85014; 85018; 85027; 86850; 86900; 86901; 94150; C1776; C9290; J0131; J0735; J1100; J1170; J1580; J1650; J1885; J2250; J2270; J2405; J2710; J2795; J3010; J3370; J7030; J7040; J7050; J7120; L1830

== ENCOUNTER 2017-12-21 05:25 | Inpatient (IN) ==
[2017-12-21] MEDS ORDERED: Dexamethasone Inj 20 MG/5 ML Vial IV.PUSH SCH (05:55)
[2017-12-21] MEDS ORDERED: Chlorhexidine Gluconate 2% 1 Pack (2 Cloths) TOPICAL ONE (06:00)
[2017-12-21] MEDS ORDERED: Vancomycin Inj 1,000 MG in Sodium Chlor 0.9% Inj 250 ML IV.SIG SCH (06:00)
[2017-12-21] MEDS ORDERED: Metoprolol Tartrate 25 MG Tablet PO ONE (06:00)
[2017-12-21] MEDS ORDERED: Sodium Chlor 0.9% Inj 500 ML IV.CONT ONE (06:00)
[2017-12-21] MEDS ORDERED: Clindamycin 900 mg/NS Premix 900 MG/50 ML PIGGYBACK IV.SIG SCH (06:00)
[2017-12-21] MEDS ORDERED: Chlorhexidine 4% Topical 120 APPLIC/120 ML Bottle TOPICAL SCH (06:00)
[2017-12-21] MEDS ORDERED: Clindamycin Inj 900 MG/6 ML Vial ONE (06:06)
[2017-12-21] MEDS ORDERED: fentaNYL Citrate Inj 250 MCG/5 ML Ampul ONE (07:01)
[2017-12-21] MEDS ORDERED: HYDROmorphone PF Inj 2 MG/ML Vial IV.PUSH PRN (07:06)
[2017-12-21] MEDS ORDERED: Post-op Orders (for Pharmacy) OTHER STA (07:06)
[2017-12-21] MEDS ORDERED: Vancomycin Inj 1 GM/200 ML PIGGYBACK IV.SIG SCH (08:00)
[2017-12-21] MEDS ORDERED: Bupivacaine Liposomal PF 1.3% Inj 20 ML Vial ONE (08:02)
[2017-12-21] MEDS ORDERED: TRANEXAMIC ACID IV.SIG SCH (08:30)
[2017-12-21] MEDS ORDERED: Tranexamic Acid Inj 3,000 MG in Sodium Chlor 0.9% Inj 100 ML P-ARTICULR SCH (08:30)
[2017-12-21] MEDS ORDERED: Sodium Chlor 0.9% Inj 73.07 ML, Ropivacaine 0.5% PF Inj 24.63 ML, Ketorolac Inj 30 MG, ... P-ARTICULR SCH ×5 (08:30)
[2017-12-21] MEDS ORDERED: SODIUM CHLOR 0.9% IV.SIG SCH (08:30)
[2017-12-21] MEDS ORDERED: Lidocaine PF 1% Inj 5 ML Syringe OTHER ONE (09:05)
[2017-12-21] MEDS ORDERED: *Meperidine Inj 25 MG/ML Vial PERIprocedural Use ONLY ONE (10:46)
[2017-12-21] MEDS ORDERED: *morphine SULFATE 10 MG/ML PERIprocedure ONLY ONE (11:09)
--- NOTE | 2017-12-21 11:11 | XR ---
EXAM DATE: 12/21/2017 7:05 AM EDT AGE/SEX: 57 years / Female INDICATIONS: Post op left knee. CLINICAL DATA: This is the patient's initial encounter. Patient reports that signs and symptoms have been present for 1 day and indicates a pain score of Nonresponsive. MEDICAL/SURGICAL HISTORY: None. None. COMPARISON: Knee x-ray 05/15/2017. FINDINGS: Two views of the knee reveal a total knee prosthesis in good position. No fracture or dislocation is observed. Soft tissues are unremarkable. Small amount of air is seen within the joint and subcutaneou s tissues. No joint effusion is seen. CONCLUSION: Total hip prosthesis in good position. Electronically signed by: Saji Jordan MD 12/21/2017 11:10 AM EDT
[2017-12-21] MEDS: Senna/Docusate Sodium 8.6/50 MG Tablet PO SCH ×2 (11:27→21:41)
[2017-12-21] MEDS: Multivitamin/Minerals Therapeutic Tablet PO SCH ×2 (11:27→21:40)
[2017-12-21] MEDS: Famotidine 20 MG Tablet PO SCH ×2 (11:27→21:41)
[2017-12-21] MEDS: Loratadine 10 MG Tablet PO SCH (11:28)
--- NOTE | 2017-12-21 12:05 | MP ---
cc: Bill Giraldo MD DATE OF OPERATION: DATE OF PROCEDURE: 12/21/2017. PREOPERATIVE DIAGNOSIS: Left knee osteoarthritis. POSTOPERATIVE DIAGNOSIS: Left knee osteoarthritis. PROCEDURE PERFORMED: Left total knee arthroplasty. SURGEON: Bill Giraldo MD RISK LEAD: JOSE Cline. ANESTHESIA: General with an adductor canal block. ESTIMATED BLOOD LOSS: 50 mL TOURNIQUET TIME: 21 minutes at 250 mmHg. COMPLICATIONS: None. IMPLANTS USED: DePuy Attune size 5 posterior stabilized femoral component, size 5 rotating platform tibial baseplate, size 5 mm polyethylene tibial insert and size 35 patella. JUSTIFICATIONS: This patient is a 57-year-old female with history of severe osteoarthritis involving the left knee. She has severe stabbing pain with standing, walking, ambulation, weightbearing activities and severe pain at rest. She has failed greater than 3 months of nonoperative conservative treatment to include medication therapy, injections, ambulatory assistive aides, home exercise program, activity modification. X-rays of the left knee reveal severe osteoarthritis with joint space narrowing, subchondral sclerosis, subchondral cyst, osteophyte formation with subluxation. The patient was counseled on risks, benefits, and alternatives to a total knee arthroplasty. The risks were discussed, which include, but are not limited to anesthesia, bleeding, infection, damage to nerves and blood vessels, pain, stiffness, failure of hardware, blood clots, pulmonary embolism and even . The patient's pain is severe. She favored the benefits over the risks. She did wish to proceed with surgery. PROCEDURE IN DETAIL: Written consent was obtained. The patient was identified by name, taken to the operating room and placed supine on the operating table. General anesthesia was administered to the patient, as well as 1 gram of IV vancomycin and 900 mg IV clindamycin. She does have a PENICILLIN ALLERGY. A well-padded tourniquet was placed on the left thigh. The left lower extremity was prepped and draped using isopropyl alcohol, Hibiclens solution and ChloraPrep solution. After a timeout performed, an Esmarch bandage was used to exsanguinate the left lower extremity and tourniquet inflated to 250 mmHg. A longitudinal incision was made in the anterior aspect of the left knee. Medial parapatellar arthrotomy was performed. The patella was everted and patellar resection guide was used to resect 7 mm of the patella. The size 35 mm guide was placed. Three drill holes were placed and a 35 mm trial fit well. Attention was turned to the femur. An intramedullary guide naldo was placed. The distal femoral guide was set to remove 10 mm of distal femur, 5 degrees off the anatomic valgus axis alignment off an oscillating saw was used to perform the distal femoral cut. Attention was turned to the tibia. An extramedullary tibial guide was set to remove 5 mm off the lowest portion of the medial tibial plateau. The tibia guide was pinned in place and tibial cut was performed. A 5 mm spacer block showed full extension. Attention was turned back to the femur. AP sizer marked and measured to a size 5. The anterior reference 3-degree external rotation guide was used to pin a size [address]; the anterior, posterior chamfer cuts were performed. A size 5 PCL box was pinned in place and the PCL was approximated with an oscillating saw. The medial and lateral meniscus remnants were removed, as well as bone and soft tissue debris from the posterior portion of the knee. A size 5 tibial baseplate was pinned in place and the tibia was drilled and punched. Trial components were impacted with cement and final and cemented in place. With the current components, the leg achieved full extension to 0 degrees and flexion to 140. No evidence of tibial liftoff. Varus valgus balance appeared appropriate and symmetric in the patella was noted to track centrally. With the tourniquet deflated, Bovie cautery was used for hemostasis. The surgical wound was thoroughly irrigated with sterile saline, pulse lavage, antibiotic impregnated solution. The arthrotomy incision was closed with #1 Vicryl suture, subcuticular layer 2-0 Vicryl suture. Skin was closed with Dermabond. Sterile dressing applied. The patient tolerated the procedure well with no intraoperative complications noted. Gulshan Oneal, Physician Quality Auditor-Certified was present during the entire procedure to include patient positioning and the procedure was itself. The medical necessity of the physician wet process assistant head miller was indicated in this case due to the complexity of the procedure. He assisted with appropriate manipulation of the leg and also retraction of muscles, tendon, bone and neurovascular structures. He assisted in preparation of bone and also implantation of the prosthetic replacement. MD EJ Dan/quinn , 10:19 AM , 10:27 AM
[2017-12-21] MEDS: Pregabalin 75 MG Capsule PO SCH ×2 (15:29→21:40)
--- NOTE | 2017-12-21 16:36 | P.CONIM ---
History of Present Illness Service: [facility] [place] Consult date: 12/21/17 Requesting Physician: Bill Giraldo Reason for Consult: MEDICAL MANAGEMENT Primary Care Provider: Nata Cerrato DO Family Provider: Nata Cerrato DO Chief Complaint: Status post left total knee arthroplasty History of Present Illness: Patient is a 57-year-old female. Who underwent a left total knee arthroplasty today by Dr. Bill Giraldo due to severe osteoarthritis. We have been consulted for help with medical management. Patient has a very extensive past medical history including history of asthma and, back pain, carpal tunnel syndrome, chronic pain, COPD, degenerative joint disease, depression, fibromyalgia, GERD, mitral valve regurgitation, neuropathy, osteoarthritis, and mood disorder. Patient is previously had arthroplasty of the right knee as well as arthroscopic of the right shoulder colonoscopy and right rotator cuff surgery, as well as history of fusion of cervical spine status post epidural steroid injections. Review of Systems All other systems reviewed negative except as stated in HPI FOR[facility] - History History Provided By: Patient, Family Member - Medical History Medical History: Medical History (Last Reviewed 12/21/17 @ 16:29 by Timothy Jaramillo DO) Allergic conjunctivitis Allergic rhinitis Asthma Astigmatism Back pain Bilateral bunions Bilateral tinnitus COPD (chronic obstructive pulmonary disease) Carpal tunnel syndrome Cervical radiculopathy Cervical spondylosis Chronic pain DDD (degenerative disc disease) Depression Dry eye syndrome Dyssomnia Fibromyalgia Foot pain GERD (gastroesophageal reflux disease) Glaucoma Herniated cervical disc Hidradenitis suppurativa History of anesthesia reaction History of endoscopy History of hysterectomy Hypermetropia Hypersomnolence Internal hemorrhoids Joint instability Knee pain Menopause Mitral valve regurgitation Mood disorder Myopia Narcolepsy Neuroma Neuropathy Nuclear sclerosis of both eyes Onychomycosis of toenail Osteoarthritis Plantar fasciitis Postlaminectomy syndrome Presbyophrenia Refractive error Shoulder pain Sleep apnea Steatosis, liver Varicose vein of leg Vitreous detachment Vitreous floaters of both eyes - Surgical History Surgical History: Surgical History (Last Reviewed 12/21/17 @ 16:29 by Timothy Jaramillo DO) History of arthroplasty of right knee History of arthroscopy of right shoulder History of colonoscopy History of rotator cuff surgery Hx of fusion of cervical spine Status post epidural steroid injection - Family History Family History: Family History (Last Updated 12/21/17 @ 16:31 by Timothy Jaramillo DO) Other Family history of hypertension - Social History I have reviewed the patient's Social History: Yes - Tobacco History Second Hand Smoke Exposure: No Tobacco Use In Past 30 Days: No Smoking Status: Former smoker Tobacco Type: Cigarettes - Alcohol History How Often Do You Have a Drink Containing Alcohol: 2 to 3 times a week - Substance Use History Substance History: No History of Abuse - Travel History History of Recent Travel: No Recent Travel in the [place] Within the Last 8 Weeks: No Recent Travel Out of the Country Within the Last 8 Weeks: No - Immunization History Tetanus Immunization: Unsure Hx Influenza Vaccine This Season: Yes Medications and Allergies Active Medications: Active Medications Hydrocodone Bitart/Acetaminophen ([place] 7.5/325) 1 tab PO Q4H PRN PRN Reason: PAIN LESS THAN 5 ON SCALE Hydrocodone Bitart/Acetaminophen ([place] 7.5/325) 2 tab PO Q6H PRN PRN Reason: PAIN SCALE 5 TO 10 Last Admin: 12/21/17 13:22 Dose: 2 tab Al Hydroxide/Mg Hydroxide (Milk Of Magnesia Liq) 30 ml PO BID PRN PRN Reason: Mild Constipation Aspirin (Aspirin Chew) 81 mg PO BID [facility] Last Admin: 12/21/17 11:26 Dose: 81 mg Chlorhexidine Gluconate (Hibiclens 4% Topical) 1 applicatio TOPICAL ONCE [facility] Stop: 12/25/17 05:59 Last Admin: 12/21/17 07:00 Dose: 1 applicatio Sodium Chloride 73.07 ml/Ropivacaine 24.63 ml/Ketorolac Tromethamine 30 mg/ Epinephrine HCl 0.5 mg/Clonidine HCl 80 mcg 0 ml P-ARTICULR ONCE [facility] Stop: 12/21/17 21:00 Last Admin: 12/21/17 10:00 Dose: 123.15 bag Dexamethasone Sodium Phosphate (Decadron Inj) 10 mg IV.PUSH ONCE [facility] Stop: 12/21/17 21:00 Last Admin: 12/21/17 06:12 Dose: 10 mg Diphenhydramine HCl (Benadryl) 25 mg PO Q6H PRN PRN Reason: ITCHING Famotidine (Pepcid) 20 mg PO BID [facility] Last Admin: 12/21/17 11:27 Dose: Not Given Guaifenesin (Robitussin Liq) 400 mg PO Q4H PRN PRN Reason: CONGESTION Hydromorphone HCl (Dilaudid Pf Inj) 1 mg IV.PUSH Q3H PRN PRN Reason: BREAKTHROUGH PAIN Lactated Ringer's (Lr 1000 Ml Inj) 1,000 mls @ 30 mls/hr IV.CONT .Q24H ONE Stop: 12/22/17 05:59 Last Admin: 12/21/17 05:50 Dose: 30 mls/hr Sodium Chloride (Ns Inj) 500 mls @ 30 mls/hr IV.CONT .[id number] ONE Stop: 12/21/17 22:39 Last Admin: 12/21/17 06:13 Dose: Not Given Tranexamic Acid 1,003.5 mg/ (Sodium Chloride) 110.035 mls @ 200 mls/hr IV.SIG ONCE [facility] Stop: 12/21/17 21:00 Last Infusion: 12/21/17 09:49 Dose: Infused Tranexamic Acid 3,000 mg/ (Sodium Chloride) 130 mls @ 200 mls/hr P-ARTICULR ONCE [facility] Stop: 12/21/17 21:00 Last Admin: 12/21/17 10:00 Dose: 200 mls/hr Vancomycin HCl 1,000 mg/ (Sodium Chloride) 250 mls @ 250 mls/hr IV.SIG DRY MOP MAKER [facility] Stop: 12/24/17 05:49 Last Infusion: 12/21/17 08:33 Dose: Infused Clindamycin/Sodium Chloride (Cleocin 900 Mg/Ns Premix) 900 mg in 50 mls @ 100 mls/hr IV.SIG DRY MOP MAKER [facility] Stop: 12/25/17 05:59 Last Infusion: 12/21/17 08:37 Dose: Infused Lactated Ringer's (Lr 1000 Ml Inj) 1,000 mls @ 80 mls/hr IV.CONT .[id number] [facility] Last Admin: 12/21/17 11:00 Dose: 80 mls/hr Vancomycin HCl 1,000 mg/ (Sodium Chloride) 270 mls @ 270 mls/hr IV.SIG Q12H [facility] Stop: 12/22/17 08:59 Lactulose (Lactulose Liq) 30 ml PO DAILY PRN PRN Reason: SEVERE CONSITIPATION Loratadine (Claritin) 10 mg PO DAILY [facility] Last Admin: 12/21/17 11:28 Dose: Not Given Miscellaneous Information (Misc Nursing Information) 0 each OTHER UNSCH PRN PRN Reason: SEE LABEL COMMENTS Stop: 12/22/17 10:42 Multivitamins/Minerals (Theragran-M) 1 tab PO BID [facility] Stop: 02/19/18 08:59 Last Admin: 12/21/17 11:27 Dose: Not Given Ondansetron HCl (Zofran Inj) 4 mg IV.PUSH Q6H PRN PRN Reason: NAUSEA OR VOMITING Pantoprazole Sodium (Protonix) 40 mg PO DAILY [facility] Last Admin: 12/21/17 11:27 Dose: Not Given Patient Own Medication (Patient Own Medication) 0 each PO BID [facility] Povidone Iodine (Betadine 7.5% Scrub) 1 applicatio TOPICAL ONCE [facility] Stop: 12/25/17 05:59 Pregabalin (Lyrica) 150 mg PO BID [facility] Last Admin: 12/21/17 15:29 Dose: Not Given Senna/Docusate Sodium (Tami-Colace) 1 tab PO BID [facility] Last Admin: 12/21/17 11:27 Dose: Not Given Sennosides (Senokot) 17.2 mg PO BID PRN PRN Reason: Moderate Constipation Sodium Chloride (Ns Flush) 2 ml IV.FLUSH BID [facility] Last Admin: 12/21/17 11:26 Dose: 2 ml Sodium Chloride (Ns Flush) 2 ml IV.FLUSH PRN PRN PRN Reason: FLUSH AFTER USING IV ACCESS Zolpidem Tartrate (Ambien) 5 mg PO HS PRN PRN Reason: INSOMNIA Allergies Allergy/AdvReac Type Severity Reaction Status Date / Time Penicillins Allergy Severe CRAWFORD OF Verified 12/21/17 05:48 BLOOD RUNNING DOWN THE BACK OF MY THROAT bupropion Allergy Unknown PANIC Verified 12/21/17 05:48 ATTACKS pantoprazole Allergy Heartburn Verified 12/21/17 05:48 Home Medications Medication Instructions Recorded Confirmed Type Ca-D3-mag tu-nbmc-may-bryon-bor 1 tab PO DAILY 12/03/17 12/21/17 History [Calcium 600-D3 Plus] albuterol sulfate [Proventil HFA] 2 puff INHALATION QID PRN 12/03/17 12/21/17 History armodafinil 150 mg PO BID 12/03/17 12/21/17 History fexofenadine 60 mg PO BID 12/03/17 12/21/17 History guaifenesin 400 mg PO Q4H PRN 12/03/17 12/21/17 History lansoprazole 15 mg PO BID 12/03/17 12/21/17 History milk thistle 175 mg PO DAILY 12/03/17 12/21/17 History xvzrrwsclxff-muel-odzcr acid 1 tab PO DAILY 12/03/17 12/21/17 History [Complete Multivitamin-Mineral] pregabalin [Lyrica] 150 mg PO BID 12/03/17 12/21/17 History ranitidine HCl 300 mg PO DAILY 12/03/17 12/21/17 History acetaminophen-codeine 1 tab PO Q6H PRN 12/21/17 12/21/17 History [Tylenol-Codeine #3] Exam Vital signs: Vital Signs 12/21/17 06:00 12/21/17 06:18 12/21/17 10:41 Temperature 98.5 F 98.1 F Pulse Rate 69 62 80 Respiratory Rate 15 16 Blood Pressure 147/75 H 118/75 Pulse Oximetry 99 99 98 12/21/17 10:45 12/21/17 11:00 12/21/17 11:15 Temperature Pulse Rate 80 74 70 Respiratory Rate 16 16 16 Blood Pressure 123/74 126/66 97/53 L Pulse Oximetry 99 97 98 12/21/17 11:30 12/21/17 12:00 12/21/17 16:00 Temperature 98.8 F 97.5 F L Pulse Rate 66 75 59 L Respiratory Rate 16 18 18 Blood Pressure 108/59 L 120/64 118/55 L Pulse Oximetry 96 100 100 Intake & Output 12/20/17 12/21/17 12/21/17 18:59 06:59 18:59 Intake Total 1210.035 / 1210.035 Output Total 25 / 25 Balance 1185.035 / 1185.035 Weight 66.9 kg 66.9 kg Intake: IV 410.035 / 410.035 Cleocin 900 mg/NS Premix 900 mg 50 / 50 In 50 ml @ 100 mls/hr IV.SIG DRY MOP MAKER CHRISTOPHER Rx#:[id number] Cyklokapron Inj 1,003.5 MG In 110.035 / 110.035 NS Inj 100 ML @ 200 mls/hr IV. SIG ONCE [facility]STOPHER Rx#:[id number] Vancomycin Inj 1,000 MG In NS 250 / 250 Inj 250 ML @ 250 mls/hr IV.SIG DRY MOP MAKER [facility] Rx#:[id number] Anesthesia Amount 800 / 800 Output: Estimated Blood Loss 25 / 25 Other: Date of Last Bowel Movement 12/20/17 Weight On Admission 66.9 kg Narrative: GENERAL: Awake alert and oriented x3 talkative and cooperative SKIN: Warm and dry. HEAD: Atraumatic. Normocephalic. EYES: Pupils equal and round. No scleral icterus. No injection or drainage. EOMI ENT: No nasal bleeding or discharge. Mucous membranes pink and moist. Tongue is midline NECK: Trachea midline. No JVD. Supple CARDIOVASCULAR: Regular rate and rhythm. S1-S2 no S3 or S4 no heave or thrill or rub or gallop RESPIRATORY: No accessory muscle use. Clear to auscultation. Breath sounds equal bilaterally. GASTROINTESTINAL: Abdomen soft, non-tender, nondistended. Hepatic and splenic margins not palpable. MUSCULOSKELETAL: Extremities without clubbing, cyanosis, or edema. No obvious deformities. NEUROLOGICAL: Awake and alert. No obvious cranial nerve deficits. Motor grossly within normal limits. Five out of 5 muscle strength in the arms and legs. Normal speech. Left knee is dressed and wrapped PSYCHIATRIC: Appropriate mood and affect; insight and judgment normal. Results - Labs Labs: Laboratory Results - last 24 hr 12/21/17 05:55 Blood Type O Positive Antibody Screen Negative - Imaging Impressions Knee X-Ray 12/21/17 07:05 CONCLUSION: Total hip prosthesis in good position. Assessment and Plan - Plan Status post left total knee arthroplasty for left knee severe osteoarthritis -Pain control -DVT prophylaxis per GI -Physical therapy and Occupational Therapy Osteoarthritis will help with pain control Nausea vomiting we will make sure that she has antiemetics available History of fibromyalgia ensure that she is on her prior home medications Mitral valve disorder stable mood disorder resume home Medications COPD make sure she has available nebulized treatments as needed GERD make sure that she has PPI available Chronic neuropathy make sure she has her home medications We will be available for any other issues that arise. A.m. labs Discharge when cleared by orthopedic surgeon Code Status: Full code Discussed Condition With: RN and patient and case management Discharge Planning: When cleared by orthopedic surgery
[2017-12-21] MEDS: Vancomycin Inj 1,000 MG in Sodium Chlor 0.9% Inj 250 ML IV.SIG SCH (19:55)
[2017-12-21] MEDS ORDERED: Zolpidem Tartrate 5 MG Tablet PO PRN (21:00)
[2017-12-22 05:20] LABS: Hematocrit 31.9 % (35.0-46.0); Hemoglobin 10.9 gm/dL (11.6-15.3)
[2017-12-22 05:22] LABS: Baso % (Auto) 0.1 % (0.0-2.0); Eos # (Auto) 0.1 th/mm3 (0.0-0.4); Eos % (Auto) 0.8 % (0.0-4.0); Hematocrit 31.6 % (35.0-46.0); Hemoglobin 10.8 gm/dL (11.6-15.3); Lymph # (Auto) 1.9 th/mm3 (1.0-4.8); Lymph % (Auto) 26.4 % (9.0-44.0); Mean Corpuscular HGB Conc 34.1 % (32.0-36.0); Mean Corpuscular Hemoglobin 32.3 pg (27.0-34.0); Mean Corpuscular Volume 94.8 fL (80.0-100.0); Mean Platelet Volume 7.6 fL (7.0-11.0); Mono # (Auto) 0.6 th/mm3 (0.0-0.9); Mono % (Auto) 8.3 % (0.0-8.0); Neut # (Auto) 4.6 th/mm3 (1.8-7.7); Neut % (Auto) 64.4 % (16.0-70.0); Platelet Count 173 th/mm3 (150-450); Red Blood Count 3.34 mil/mm3 (4.00-5.30); Red Cell Distribution Width 12.3 % (11.6-17.2); White Blood Count 7.1 th/mm3 (4.0-11.0)
[2017-12-22 05:39] LABS: Alanine Aminotransferase 22 U/L (10-53); Albumin 3.5 g/dL (3.4-5.0); Anion Gap 6 meq/L (5-15); Aspartate Aminotransferase 18 U/L (15-37); Blood Urea Nitrogen 17 mg/dL (7-18); Calcium 8.5 mg/dL (8.5-10.1); Carbon Dioxide 30.6 meq/L (21.0-32.0); Chloride 102 meq/L (98-107); Glomerular Filtration Rate 66 mL/min (>89); Glucose,Random 95 mg/dL (74-106); Potassium 3.6 meq/L (3.5-5.1); Sodium 139 meq/L (136-145)
[2017-12-22 05:48] LABS: Alkaline Phosphatase 68 U/L (45-117); Phosphorus 3.9 mg/dL (2.5-4.9); Thyroid Stimulating Hormone 0.761 uIU/mL (0.358-3.740); Total Protein 6.3 g/dL (6.4-8.2)
[2017-12-22] MEDS: Vancomycin Inj 1,000 MG in Sodium Chlor 0.9% Inj 250 ML IV.SIG SCH (08:46)
[2017-12-22] MEDS: Multivitamin/Minerals Therapeutic Tablet PO SCH (08:47)
[2017-12-22] MEDS: Famotidine 20 MG Tablet PO SCH (08:47)
[2017-12-22] MEDS: Pregabalin 75 MG Capsule PO SCH (08:47)
[2017-12-22] MEDS: Loratadine 10 MG Tablet PO SCH (08:47)
[2017-12-22] MEDS: Senna/Docusate Sodium 8.6/50 MG Tablet PO SCH (08:47)
--- NOTE | 2017-12-22 08:51 | P.PNOP ---
Subjective Interval history: pain controlled. ready to go home. Physical Exam Vital signs: Vital Signs 12/21/17 10:41 12/21/17 10:45 12/21/17 11:00 Temperature 98.1 F Pulse Rate 80 80 74 Respiratory Rate 16 16 16 Blood Pressure 118/75 123/74 126/66 Pulse Oximetry 98 99 97 12/21/17 11:15 12/21/17 11:30 12/21/17 12:00 Temperature 98.8 F Pulse Rate 70 66 75 Respiratory Rate 16 16 18 Blood Pressure 97/53 L 108/59 L 120/64 Pulse Oximetry 98 96 100 12/21/17 16:00 12/21/17 20:00 12/22/17 00:00 Temperature 97.5 F L 98.6 F 98.4 F Pulse Rate 59 L 63 60 Respiratory Rate 18 16 16 Blood Pressure 118/55 L 103/57 L 104/85 Pulse Oximetry 100 96 99 12/22/17 04:00 Temperature 98.5 F Pulse Rate 61 Respiratory Rate 16 Blood Pressure 92/53 L Pulse Oximetry 97 Intake & Output 12/21/17 12/22/17 12/22/17 18:59 06:59 18:59 Intake Total 1790.035 / 9389.658 8998 / 1750 Output Total 25 / 25 Balance 1765.035 / 3266.853 1278 / 1750 Weight 66.9 kg 72.1 kg Intake: IV 410.035 / 934.971 2453 / 1270 LR 1000 mL Inj 1,000 ML @ 80 1000 / 1000 mls/hr IV.CONT .[id number] [facility]RISTOPHER Rx# :[id number] Cleocin 900 mg/NS Premix 900 mg 50 / 50 In 50 ml @ 100 mls/hr IV.SIG CLIENT EXECUTIVE CHRISTOPHER Rx#:[id number] Cyklokapron Inj 1,003.5 MG In 110.035 / 110.035 NS Inj 100 ML @ 200 mls/hr IV. SIG ONCE [facility]RISTOPHER Rx#:[id number] Vancomycin Inj 1,000 MG In NS 250 / 250 Inj 250 ML @ 250 mls/hr IV.SIG CLIENT EXECUTIVE CHRISTOPHER Rx#:[id number] Vancomycin Inj 1,000 MG In NS 270 / 270 Inj 250 ML @ 270 mls/hr IV.SIG Q12H [facility]RISTOPHER Rx#:[id number] Oral 580 / 580 480 / 480 Anesthesia Amount 800 / 800 Output: Estimated Blood Loss 25 / 25 Other: # Voids 2 Date of Last Bowel Movement 12/20/17 # Bowel Movements 0 Narrative: in bed, nad dressing c/d/i neg waldo nvi Results - Labs CBC & Chem 7: 12/22/17 04:36 12/22/17 04:36 Laboratory Results - last 24 hr 12/22/17 12/22/17 12/22/17 04:36 04:36 04:36 WBC 7.1 RBC 3.34 L Hgb 10.8 L 10.9 L Hct 31.6 L 31.9 L MCV 94.8 MCH 32.3 MCHC 34.1 RDW 12.3 Plt Count 173 MPV 7.6 Neut % (Auto) 64.4 Lymph % (Auto) 26.4 Sutton % (Auto) 8.3 H Eos % (Auto) 0.8 Baso % (Auto) 0.1 Neut # (Auto) 4.6 Lymph # (Auto) 1.9 Sutton # (Auto) 0.6 Eos # (Auto) 0.1 Baso # (Auto) 0.0 WBC Differential . Differential Comment Auto diff final Sodium 139 Potassium 3.6 Chloride 102 Carbon Dioxide 30.6 Anion Gap 6 BUN 17 Creatinine 0.89 Estimated GFR 66 L Random Glucose 95 Calcium 8.5 Phosphorus 3.9 Magnesium 2.0 Total Bilirubin 0.5 AST 18 ALT 22 Alkaline Phosphatase 68 Total Protein 6.3 L Albumin 3.5 TSH 0.761 Free T4 1.00 - Imaging Impressions Knee X-Ray 12/21/17 07:05 CONCLUSION: Total hip prosthesis in good position. Assessment and Plan - Ortho Post Op Day # 1 - Assessment and Plan s/p L TKA wbat ok to maintain dressing unless saturated asa 81 d/c planning home with hhc and pt - cleared today if does well in pt f/up dr. beckett 2 weeks
--- NOTE | 2017-12-22 08:52 | P.DCO ---
- Physical Therapy Physical Therapy: Gait training, Safety evaluation, Transfer training, bed to chair Knee: Total knee, Protocol: Left, Full weight bearing Left Lower Extremity Weight Bearing: Weight bearing as tolerated - Nursing RN: 3 days/week x 2 weeks Nursing: Dressing changes Dressing changes: Do not change dressing - Certification Need for Home Health services: I have seen patient Gracia Cantu on 12/22/17. My clinical findings support the need for the requested home health care services because: Need for Home Health Services: Limited ability to care for self, High risk of falls Homebound Certification: I certify that my clinical findings support that this patient is homebound because: Homebound Certification: Post-op weakness, Unsteady gait/balance
[2017-12-22 09:55] VITALS: BP 93/52; PULSE 67; RESP 12; TEMP 97.5; O2SAT 98
[2017-12-22 18:03] LABS: Hemoglobin A1c 5.3 % (4.3-6.0)
--- NOTE | 2018-01-12 13:16 | MD ---
cc: Bill Giraldo MD DATE OF DISCHARGE: 12/22/2017 ADMITTING DIAGNOSIS: Severe degenerative osteoarthritis, left knee. DISCHARGE DIAGNOSIS: Severe degenerative osteoarthritis, left knee. 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 Currently, she is being treated for progressive left knee pain. The patient states the pain has been bothering her for many, many years and is currently inhibiting her activities of daily living. She states it is a severe aching sensation aggravated with weightbearing activity. She has no alleviating factors, although in the past she has tried medications, bracing, physical therapy, and home exercise program, multiple corticosteroid injections without long lasting relief of symptoms. She does have a history of a well-functioning right total knee arthroplasty. The patient has x-ray evidence of severe degenerative osteoarthritis of the left knee. While in the office, the patient was counseled on her diagnosis and treatment options. Risks, benefits, and indications were discussed. The patient did elect to proceed with surgical intervention to include a left total knee arthroplasty. DATE OF SURGERY: 12/21/2017, left total knee arthroplasty. POSTOP: After surgery, the patient was admitted to [facility] where she received appropriate medical management, pain control, DVT prophylaxis, as well as the physical therapy. DISCHARGE: Once being discharged from the hospital, the patient was then cleared to go home where she will receive home health care and home physical therapy. She is in stable condition. She may weight bear as tolerated. She has been instructed on wound care management. The patient has been provided prescriptions for pain control as well as DVT prophylaxis medication. She has also been provided a followup appointment in approximately 2 weeks from her date of surgery. The patient asked appropriate questions, which have been answered. The patient has been discharged. Dictated by JOSE Dennis MD EJ Dan/quinn , 03:17 PM , 03:22 PM
== END 2017-12-22 11:01 | disposition home health service (06) ==
LOC: HSDI 05:25 → N06 12:06
PROVIDERS: ADMIT Orthopaedic Surgery Sports Medicine; ATTEND Orthopaedic Surgery Sports Medicine